=== PATIENT | female | born 1960 | race Caucasian/White ===

== ENCOUNTER 2019-11-28 07:46 | Day surgery (SDC) | payer BC ==
[~2019-11-28 07:46] MED LIST: BUPIVACAINE HCL 0.75% INJ/PF (7.5 MG/1 ML) 10 ML SDV OD PRN; CHONDR SU A NA/HYALUR INTRAOC KIT (SURGICARE) ONE; EPINEPHRINE INJ/PF 1 MG/1 ML AMPULE ONE; FENTANYL CITRATE INJ/PF 100 MCG/2 ML AMPUL ONE; KETOROLAC TROMETHAMINE 0.45% 4 DROP/0.4 ML DROPERETTE OD PRN; LIDOCAINE 1% INJ-PF (10 MG/ML) 30 ML SDV ONE; LIDOCAINE 4% INJ/PF (40 MG/ML) 5 ML AMPUL OD PRN; MIDAZOLAM 2 MG/2 ML INJ ONE; ONDANSETRON HCL INJ/PF 4 MG/2 ML SDV ONE
[2019-11-28] MEDS: TROPICAMIDE 1% OPH SOLN 15 ML OD PRN ×3 (08:09→08:29)
[2019-11-28] MEDS: BESIFLOXACIN HCL 0.6% OPH SUSP 5 ML BOTTLE OD PRN ×5 (08:09→09:14)
[2019-11-28] MEDS: CYCLOPENTOLATE 0.2%/PHENYLEPHRINE 1% OPH SOLN 2 ML OD PRN ×3 (08:09→08:29)
[2019-11-28] MEDS: TETRACAINE HCL 0.5% OPH SOLN 4 ML OD PRN ×3 (08:10→08:49)
[2019-11-28] MEDS: DORZOLAMIDE HCL 2%/TIMOLOL MALEAT 0.5% OPH SOLN 10 ML OD PRN ×3 (09:13→09:14)
[2019-11-28] MEDS ORDERED: MIDAZOLAM 2 MG/2 ML INJ ONE (09:21)
--- NOTE | 2019-11-28 09:28 | Operative Report ---
Operative Report-[facility] Operative Report: DATE OF SURGERY: 11/28/2019 PREOPERATIVE DIAGNOSIS: CATARACT, RIGHT EYE. POSTOPERATIVE DIAGNOSIS: CATARACT, RIGHT EYE. PROCEDURE PERFORMED: PHACOEMULSIFICATION WITH POSTERIOR CHAMBER INTRAOCULAR LENS, RIGHT EYE. Intraocular Lens Model : ZCBOO 22.0 Total Phaco Time: 5.32 CDE SURGEON: SAVANA OBANDO MD ANESTHESIA: TOPICAL WITH MAC. INDICATIONS FOR SURGERY: Difficulty reading road signs and words on TV. PROCEDURE: The patient was brought to the Operating Room and placed on the operative table. Following tetracaine drops, topical anesthesia was administered. This consisted of instrument wipe pledgets soaked in a solution of 4% Xylocaine mixed with 0.75% Marcaine in a 1:2 ratio. A 2 x 1 cm pledget was placed in the superior fornix. A 1 x 1 cm pledget was placed in the inferior fornix. The eye was patched shut for 5 minutes. The patch was removed. The eye was sterilely prepped and draped in the usual manner. Lid speculum was placed in the eye. The pledgets were removed. 4-0 black silk sutures were placed around the superior and the inferior rectus muscles to be used as traction. A conjunctival peritomy was made at the 10 o'clock position. Hemostasis was obtained with bipolar cautery. A posterior limbal groove was created using a crescent knife and dissected anteriorly towards the cornea. A sharp point blade was used to create a paracentesis site at the 2 o'clock position. 0.2 cc non preserved Lidocaine was injected into the anterior chamber. A 2.4 mm keratome was used to enter the a nterior chamber through the groove. Viscoelastic was injected into the anterior chamber. An anterior capsulotomy was performed using Utrata forceps in a capsulorrhexis fashion. Hydrodissection and hydrodelineation were performed. Phacoemulsification was performed in [id number] technique. Following this, the I/A unit was used to remove residual cortex. Viscoelastic was injected into the capsular bag. The Intraocular lens was placed in the capsular bag. The I/A unit was used to remove residual viscoelastic. The wound was seen to be watertight under high and low pressure, and no sutures were placed. The intraocular lens was well centered. The pressure was adjusted in the eye to normal pressure. The 4-0 black silk sutures and lid speculum were removed. The eye was shielded after Besivance. prednisolone, and Cosopt drops were placed. The patient tolerated the procedure well and was sent to the Recovery Room in good condition.
== END 2019-11-28 09:47 | disposition home or self-care (01) ==
LOC: SC 07:46
PROVIDERS: ATTEND Ophthalmology
DX: H25.813 Combined forms of age-related cataract, bilateral (principal); H04.123 Dry eye syndrome of bilateral lacrimal glands; Z88.2 Allergy status to sulfonamides
CPT/HCPCS: 66984; V2632; J2250; J3490 ×5; J0171; J3010; J2405